=== PATIENT | female | born 1950 | race Caucasian/White ===

== ENCOUNTER 2017-12-20 12:32 | Outpatient (CLI) | payer OTHER | END 2017-12-20 13:01 | disposition home or self-care (01) | LOC: NUCLEAR 12:32 | DX: R42 Dizziness and giddiness (principal); R55 Syncope and collapse; I10 Essential (primary) hypertension; I65.23 Occlusion and stenosis of bilateral carotid arteries ==

== ENCOUNTER 2020-12-27 07:23 | Outpatient (CLI) | payer OTHER | END 2020-12-27 09:31 | disposition home or self-care (01) | LOC: NUCLEAR 07:23 | PROVIDERS: ATTEND Internal Medicine Cardiovascular Disease | DX: I25.9 Chronic ischemic heart disease, unspecified (principal); I50.20 Unspecified systolic (congestive) heart failure | CPT/HCPCS: 78452; 93017; A9500 ==